=== PATIENT | male | born 1990 | race Native Hawaiian/Other Pacific Islander ===

== ENCOUNTER 2017-10-31 09:08 | Emergency (ER) | payer OTHER ==
[2017-10-31 09:24] VITALS: BP 147/100
--- NOTE | 2017-10-31 10:06 | Emergency Department Report ---
ED General Adult HPI - General Chief complaint: Dizziness Stated complaint: DIZZY/DEHYDRATION Time Seen by Provider: 10/31/17 09:32 Source: patient Mode of arrival: Ambulatory Limitations: No Limitations - History of Present Illness Initial comments: Mr. Arboleda is a healthy 26-year-old male presents with nausea vomiting for the past 4 days. He had a lot of alcohol to drink while he was in [place]. He returned on Friday. He was so ill that he was [place] at [place] in [place]. He also saw his PCP on yesterday. PCP gave him normal bill of health. However she wanted for him to be evaluated for liver disease. He has referral for outpatient evaluations today. He's had fever. Has a history of alcohol abuse. He has had 2 DUIs. He knows that he needs to stop drinking alcohol. "I know that I am tearing up my body." - Related Data Previous Rx's Medication Instructions Recorded Last Taken Type Ciprofloxacin HCl [Cipro] 500 mg PO BID 3 Days #6 tablet 10/31/17 Unknown Rx Famotidine 20 mg PO BID 30 Days #60 tablet 10/31/17 Unknown Rx Promethazine [Phenergan TAB] 25 mg PO Q6HR PRN #10 tab 10/31/17 Unknown Rx Allergies Allergy/AdvReac Type Severity Reaction Status Date / Time No Known Allergies Allergy Unverified 10/31/17 09:27 ED Review of Systems ROS: Stated complaint: DIZZY/DEHYDRATION Other details as noted in HPI Comment: All other systems reviewed and negative Constitutional: fever, malaise Respiratory: denies: cough Cardiovascular: denies: chest pain ED Past Medical Hx - Past Medical History Previous Medical History?: No Additional medical history: Alcohol abuse - Surgical History Past Surgical History?: Yes Additional Surgical History: rt arm surgery - Social History Smoking Status: Current Every Day Smoker Substance Use Type: Alcohol, Marijuana - Medications Home Medications: Home Medications Medication Instructions Recorded Confirmed Last Taken Type Ciprofloxacin HCl [Cipro] 500 mg PO BID 3 Days #6 tablet 10/31/17 Unknown Rx Famotidine 20 mg PO BID 30 Days #60 tablet 10/31/17 Unknown Rx Promethazine [Phenergan TAB] 25 mg PO Q6HR PRN #10 tab 10/31/17 Unknown Rx ED Physical Exam - General Limitations: No Limitations General appearance: alert, in no apparent distress - Head Head exam: Present: atraumatic, normocephalic - Eye Eye exam: Present: normal appearance - ENT ENT exam: Present: mucous membranes moist - Neck Neck exam: Present: normal inspection - Respiratory Respiratory exam: Present: normal lung sounds bilaterally. Absent: respiratory distress, wheezes, rales, rhonchi - Cardiovascular Cardiovascular Exam: Present: regular rate, normal rhythm, normal heart sounds. Absent: systolic murmur, diastolic murmur, rubs, gallop - GI/Abdominal GI/Abdominal exam: Present: soft, normal bowel sounds. Absent: distended, tenderness, guarding, rebound - Rectal Rectal exam: Present: deferred - Extremities Exam Extremities exam: Present: normal inspection - Back Exam Back exam: Present: normal inspection - Neurological Exam Neurological exam: Present: alert, oriented X3 - Psychiatric Psychiatric exam: Present: normal affect, normal mood - Skin Skin exam: Present: warm, dry, intact, normal color. Absent: rash ED Course Vital Signs 10/31/17 09:13 Temperature 98.0 F Pulse Rate 79 Respiratory 20 Rate Blood Pressure 147/100 O2 Sat by Pulse 99 Oximetry ED Medical Decision Making - Medical Decision Making Mr. Ellis presents with subjective fever and vomiting after binge drinking in [place] while on vacation. He understands that he will need to further abstain from alcohol. He is concerned about what the liver tests will reveal. I strongly encourage abstinence from alcohol. Will cover for possible food poisoning with ciprofloxacin. Also will provide famotidine prescription for possible alcoholic gastritis. Also provided prescription for promethazine. Critical care attestation.: If time is entered above; I have spent that time in minutes in the direct care of this critically ill patient, excluding procedure time. ED Disposition Clinical Impression: Food poisoning, Gastritis Disposition: DC-01 TO HOME OR SELFCARE Is pt being admited?: No Does the pt Need Aspirin: No Condition: Stable Instructions: At-Risk Alcohol Use (ED), Abuse of Alcohol (ED) Prescriptions: Ciprofloxacin HCl [Cipro] 500 mg PO BID 3 Days #6 tablet Famotidine 20 mg PO BID 30 Days #60 tablet Promethazine [Phenergan TAB] 25 mg PO Q6HR PRN #10 tab PRN Reason: Nausea Referrals: PRIMARY CARE,MD [Primary Care Provider] - 3-5 Days Forms: Work/School Release Form(ED) Time of Disposition: 10:08
== END 2017-10-31 10:39 | disposition home or self-care (01) ==
LOC: ED 09:08
DX: T62.8X1A Toxic effect of other specified noxious substances eaten as food, accidental (unintentional), initial encounter (principal); K29.60 Other gastritis without bleeding; F17.200 Nicotine dependence, unspecified, uncomplicated; F12.10 Cannabis abuse, uncomplicated; Y92.89 Other specified places as the place of occurrence of the external cause
CPT/HCPCS: 99281

== ENCOUNTER 2018-11-29 08:04 | Emergency (ER) | payer OTHER ==
[2018-11-29 08:13] VITALS: BP 138/84
--- NOTE | 2018-11-29 08:36 | Emergency Department Report ---
HPI - General Chief Complaint: Skin/Abscess/Foreign Body Time Seen by Provider: 11/29/18 08:21 - HPI HPI: 27-year-old male presents to the emergency department with what appears to be a small abscess just above his rectum that has been there for the past 2-3 days. Patient says that he had this one time in the past and it grew to be very large before "busting open" and after that he had extreme pain and was unable to sit down for a while. For this reason, he decided to come in sooner this time around. He otherwise denies any past medical history. He has not taken anything for her symptoms prior to arrival. ED Past Medical Hx - Past Medical History Previous Medical History?: Yes Additional medical history: Alcohol abuse - Surgical History Past Surgical History?: Yes Additional Surgical History: rt arm surgery - Social History Smoking Status: Current Some Day Smoker Substance Use Type: Marijuana - Medications Home Medications: Home Medications Medication Instructions Recorded Confirmed Last Taken Type Ciprofloxacin HCl [Cipro] 500 mg PO BID 3 Days #6 tablet 10/31/17 Unknown Rx Famotidine 20 mg PO BID 30 Days #60 tablet 10/31/17 Unknown Rx Promethazine [Phenergan] 25 mg PO Q6HR PRN #10 tab 10/31/17 Unknown Rx HYDROcodone/APAP 5-325 [[place] 1 each PO Q6HR PRN #6 tablet 11/29/18 Unknown Rx 5/325] Sulfamethoxazole/Trimethoprim 1 each PO BID #10 tablet 11/29/18 Unknown Rx [Bactrim DS TAB] ED Review of Systems ROS: Stated complaint: ANAL ABCESS Other details as noted in HPI Comment: All other systems reviewed and negative Constitutional: denies: chills, fever Gastrointestinal: denies: abdominal pain, constipation, melena Skin: lesions. denies: change in color Physical Exam - Physical Exam Vital Signs: Vital Signs 11/29/18 08:09 Temperature 98.7 F Pulse Rate 66 Respiratory 20 Rate Blood Pressure 138/84 O2 Sat by Pulse 98 Oximetry Physical Exam: GENERAL: The patient is well-developed well-nourished. HENT: Normocephalic. Atraumatic. Patient has moist mucous membranes. EYES: Extraocular motions are intact. Pupils equal reactive to light bilateral ly. NECK: Supple. Trachea is midline. CHEST/LUNGS: Clear to auscultation. There is no respiratory distress noted. HEART/CARDIOVASCULAR: Regular. There is no tachycardia. There is no murmur. ABDOMEN: There is no abdominal distention. SKIN: Skin is warm and dry. NEURO: The patient is awake, alert, and oriented. The patient is cooperative. The patient has normal speech. MUSCULOSKELETAL: There is no tenderness or deformity. There is no evidence of acute injury. RECTAL: There is a small pilonidal or buttock abscess that is about 2 inches above the rectum and is about 1 inch in its greatest diameter. It is fluctuant and painful. No surrounding redness. No bleeding or drainage. ED Course Vital Signs 11/29/18 08:09 Temperature 98.7 F Pulse Rate 66 Respiratory 20 Rate Blood Pressure 138/84 O2 Sat by Pulse 98 Oximetry - I & D Buttocks Type of Procedure: Simple Site: jyoti-rectal, 1 inch above the rectum Blade Size: 11 I & D Procedure: betadine prep, sterile drapes applied Progress: < 1 mL of purulent discharge expressed. no bleeding. ED Medical Decision Making - Medical Decision Making patient presents to the emergency department with what appears to be a small perirectal abscess just superior to the rectum. An incision and drainage was done that did express some purulent discharge. There was not enough space available for iodoform gauze packing. Due to its location Rectum, the patient will still be placed on some antibiotics. We discussed cleaning the area with soap and water, soaking in a bathtub or using warm compresses to try and express any further infection, and how to monitor for worsening infection. He will return to the emergency Department with any worsening of his symptoms or any acute distress. - Differential Diagnosis abscess, hemorrhoids, pilonidal cyst Critical Care Time: No Critical care attestation.: If time is entered above; I have spent that time in minutes in the direct care of this critically ill patient, excluding procedure time. ED Disposition Clinical Impression: Jyoti-rectal abscess Disposition: -01 TO HOME OR SELFCARE Is pt being admited?: No Condition: Stable Instructions: Abscess Incision and Drainage (ED), Abscess (ED) Additional Instructions: Please follow up with a primary care physician in the next few days. You should soak a few times in a warm bath, or use warm but not hot compresses, to the area to try and express any further infection. Take the antibiotics as prescribed. Return to the emergency department with any return of worsening of her symptoms, development of fever, inability to have a bowel movement, if any acute distress. You have been prescribed a medication that is sedating and therefore should not be taken prior to driving, working, and responsible for children and in no way should be mixed with alcohol of any quantity. Prescriptions: Sulfamethoxazole/Trimethoprim [Bactrim DS TAB] 1 each PO BID #10 tablet HYDROcodone/APAP 5-325 [[place] 5/325] 1 each PO Q6HR PRN #6 tablet PRN Reason: Pain Referrals: JUVENTINO GUAJARDO MD [Staff Physician] - 3-5 Days [facility] [Outside] - 3-5 Days Time of Disposition: 08:50
== END 2018-11-29 09:01 | disposition home or self-care (01) ==
LOC: ED 08:04
DX: K61.1 Rectal abscess (principal); F10.10 Alcohol abuse, uncomplicated; F17.200 Nicotine dependence, unspecified, uncomplicated; F12.90 Cannabis use, unspecified, uncomplicated; Z98.890 Other specified postprocedural states
CPT/HCPCS: 99282

== ENCOUNTER 2021-09-26 03:34 | Emergency (ER) | payer BC, OTHER ==
[2021-09-26 04:00] LABS: Basophils % (Auto) 0.5 % (0.0-1.8); Eosinophils # (Auto) 0.1 K/mm3 (0.0-0.4); Eosinophils % (Auto) 1.1 % (0.0-4.3); Hematocrit 46.2 % (35.5-45.6); Lymphocytes # (Auto) 2.8 K/mm3 (1.2-5.4); Lymphocytes % (Auto) 42.6 % (13.4-35.0); Mean Corpuscular HGB Conc 35 % (32-34); Mean Corpuscular Volume 86 fl (84-94); Monocytes # (Auto) 0.6 K/mm3 (0.0-0.8); Monocytes % (Auto) 9.1 % (0.0-7.3); Platelet Count 155 K/mm3 (140-440); Red Blood Count 5.35 M/mm3 (3.65-5.03); Red Cell Distribution Width 14.4 % (13.2-15.2)
--- NOTE | 2021-09-26 04:07 | Cat Scan Report ---
CT HEAD WITHOUT CONTRAST INDICATION / CLINICAL INFORMATION: CODE STROKE PROTOCOL!!! Stroke-Like symptoms. TECHNIQUE: All CT scans at this location are performed using CT dose reduction for ALARA by means of automated exposure control. COMPARISON: None available. FINDINGS: HEMORRHAGE: None. EXTRA-AXIAL SPACES: Normal in size and morphology for the patient's age. VENTRICULAR SYSTEM: Normal in size and morphology for the patient's age. CEREBRAL PARENCHYMA: No significant abnormality. No acute territorial infarct. MIDLINE SHIFT / HERNIATION: None. CEREBELLUM / BRAINSTEM: No significant abnormality. ORBITS: Normal as visualized SOFT TISSUES: No significant abnormality. SKULL: No significant abnormality. PARANASAL SINUSES / MASTOID AIR CELLS: Normal as visualized ADDITIONAL FINDINGS: None. IMPRESSION: 1. No acute intracranial abnormality. Signer Name: Jem Mccallum DO Signed: 09/26/2021 4:02 AM Workstation Name: [id number]
[2021-09-26 04:11] LABS: INR 0.89 (0.87-1.13)
[2021-09-26 04:12] LABS: Partial Thromboplastin Time 26.5 Sec. (24.2-36.6)
[2021-09-26 04:18] LABS: Alanine Aminotransferase 22 units/L (7-56); Albumin 4.4 g/dL (3.9-5); BUN/Creatinine Ratio 15; Blood Urea Nitrogen 17 mg/dL (9-20); Calcium 8.8 mg/dL (8.4-10.2); Hemolysis Index 6
--- NOTE | 2021-09-26 04:32 | Emergency Department Report ---
Blank Doc - Documentation Documentation: [facility] Consult Note # Demographics Consult Type: Acute Stroke Level 1 (0-4.5 hrs) Patient Location: Emergency Room First Name: Stas Last Name: Caleb Date of : 1990 Facility: [facility] Time of Initial Page ( Time): 09/26/2021, 03:39 Time of Return Call ( Time): 09/26/2021, 03:42 # HPI History: 30 yo man with history of anxiety presenting with left sided numbness that has been going on for several days. The patient notes similar event happened months ago and resolved spontaneously. # Scores Time of exam and NIHSS ( Time): 09/26/2021, 04:28 Level of Consciousness 1a: [0] = Alert; keenly responsive LOC Questions 1b: [0] = Answers both questions correctly LOC Commands 1c: [0] = Performs both tasks correctly Best Gaze 2: [0] = Normal Visual 3: [0] = No visual loss Facial Palsy 4: [0] = Normal symmetrical movements Motor Arm Left 5a: [0] = No drift Motor Arm Right 5b: [0] = No drift Motor Leg Left 6a: [0] = No drift Motor Leg Right 6b: [0] = No drift Limb Ataxia 7: [0] = Absent Sensory 8: [0] = Normal Best Language 9: [0] = No aphasia Dysarthria 10: [0] = Normal Extinction and Inattention 11: [0] = No abnormality NIHSS Total: 0 # Data Head CT: no bleed # Assessment Impression: left sided sensory changes, resolved. NIHSS 0 Do not suspect acute neurologic pathology # Plan Thrombolytic/Intervention: NOT IV Thrombolysis or IA Intervention candidate Thrombolytic Exclusion: > 4.5 hours Target Blood Pressure: SBP < 220 Labs: CBC comprehensive metabolic panel lipid panel troponin TSH urine drug screen ua Other: If patient has any neurological deterioration please call me back immediately I have discussed my recommendations with the referring provider Additional Recommendations: consider dc home can consider migraine cocktail. outpatient PCP follow up Disposition: observation # Logistics Telemedicine: Interactive 2 way audio and visual telecommunication technology was utilized during this visit
--- NOTE | 2021-09-26 05:15 | Emergency Department Report ---
ED Neuro Deficit HPI - General Chief Complaint: Neuro Symptoms/Deficit Stated Complaint: LT SIDE NUMBNESS Time Seen by Provider: 09/26/21 03:38 Source: patient Mode of arrival: Ambulatory Limitations: No Limitations - History of Present Illness Initial Comments: 30-year-old male who presents with palpitation and left-sided numbness that started after waking up about 1-1/2 to 2 hours this morning. All was normal when he went to bed at 12 midnight. Patient has a history of same symptoms about 7 months ago when he went to [place] with negative neuro work-up. Patient is supposed to be having echocardiogram of his heart today at [place]. Patient seem to be very anxious. Patient denies any chest pain or shortness of breath. No fever or chills noted. No other modifying or associated factors reported. - Related Data Home Medications: Previous Rx's Medication Instructions Recorded Last Taken Type Ciprofloxacin HCl [Cipro] 500 mg PO BID 3 Days #6 tablet 10/31/17 Unknown Rx Famotidine 20 mg PO BID 30 Days #60 tablet 10/31/17 Unknown Rx Promethazine [Phenergan] 25 mg PO Q6HR PRN #10 tab 10/31/17 Unknown Rx HYDROcodone/APAP 5-325 [[place] 1 each PO Q6HR PRN #6 tablet 11/29/18 Unknown Rx 5/325] Sulfamethoxazole/Trimethoprim 1 each PO BID #10 tablet 11/29/18 Unknown Rx [Bactrim DS TAB] Allergies/Adverse Reactions: Allergies Allergy/AdvReac Type Severity Reaction Status Date / Time Penicillins Allergy Rash Verified 09/26/21 04:15 ED Review of Systems ROS: Stated complaint: LT SIDE NUMBNESS Other details as noted in HPI Comment: All other systems reviewed and negative Neurological: numbness Psychiatric: anxiety ED Past Medical Hx - Past Medical History Previous Medical History?: No - Surgical History Past Surgical History?: Yes Additional Surgical History: right arm surgery - Social History Smoking Status: Never Smoker Substance Use Type: None - Medications Home Medications: Home Medications Medication Instructions Recorded Confirmed Last Taken Type Ciprofloxacin HCl [Cipro] 500 mg PO BID 3 Days #6 tablet 10/31/17 Unknown Rx Famotidine 20 mg PO BID 30 Days #60 tablet 10/31/17 Unknown Rx Promethazine [Phenergan] 25 mg PO Q6HR PRN #10 tab 10/31/17 Unknown Rx HYDROcodone/APAP 5-325 [[place] 1 each PO Q6HR PRN #6 tablet 11/29/18 Unknown Rx 5/325] Sulfamethoxazole/Trimethoprim 1 each PO BID #10 tablet 11/29/18 Unknown Rx [Bactrim DS TAB] ED Neuro Physical Exam - General Limitations: No Limitations General appearance: alert, in no apparent distress, anxious Suspected Stroke: No - Head Head exam: Present: normal inspection - Eye Eye exam: Present: normal appearance Pupils: Present: normal accommodation - ENT ENT exam: Present: normal exam, normal orophraynx, mucous membranes moist - Neck Neck exam: Present: normal inspection, full ROM. Absent: tenderness, meningismus - Respiratory Respiratory exam: Present: normal lung sounds bilaterally. Absent: respiratory distress, accessory muscle use - Cardiovascular Cardiovascular Exam: Present: normal rhythm, bradycardia, normal heart sounds - GI/Abdominal GI/Abdominal exam: Present: soft, normal bowel sounds. Absent: distended, tenderness - Extremities Exam Extremities exam: Present: normal inspection, full ROM, normal capillary refill. Absent: tenderness, pedal edema - Back Exam Back exam: Present: normal inspection, full ROM. Absent: tenderness, CVA tenderness (R), CVA tenderness (L) - Neurological Exam Neurological exam: Present: alert, oriented X3 - NIHSS 1a. Level of Consciousness: alert/keenly responsive 1b. LOC Questions: answers both correctly 1c. LOC Commands: performs tasks correctly 2. Best Gaze: normal 3. Visual: no visual loss 4. Facial Palsy: normal symmetrical movement 5b. Motor Arm Right: no drift 5a. Motor Arm Left: no drift 6a. Motor Leg Left: no drift 6b. Motor Leg Right: no drift 7. Limb Ataxia: absent 8. Sensory: normal 9. Best Language: no aphasia 10. Dysarthria: normal 11. Extinction/Inattention: no abnormality Total Score: 0 Stroke Severity: No Stroke Symptoms - Psychiatric Psychiatric exam: Present: normal affect, anxious - Skin Skin exam: Present: warm, normal color ED Course Vital Signs 09/26/21 09/26/21 09/26/21 04:00 04:16 04:30 Temperature 97.6 F Pulse Rate 62 59 L 61 Respiratory 14 16 18 Rate Blood Pressure 123/75 119/76 119/77 Blood Pressure 123/75 [Left] O2 Sat by Pulse 99 98 98 Oximetry 09/26/21 09/26/21 09/26/21 04:46 05:00 05:16 Temperature Pulse Rate 60 71 59 L Respiratory 12 16 14 Rate Blood Pressure 118/73 111/68 115/77 Blood Pressure [Left] O2 Sat by Pulse 98 99 98 Oximetry - Reevaluation(s) Reevaluation #1: 09/26/21 05:11 here with numbness with palpitation -- and noted with anxiety on examination-- pt have had same symptoms about 7 months ago at [place] with negative neuro workup-- NIH score of zero -- this is likely anxiety related than neuro-- Dr Aguilar neurology solution spec consulted who agreed and suggested ruling out cardiac or anxiety as he did not believe this to be neuro following his exam ination via telehealth. CT head noted to be negative for any acute intracranial abnormality-- will continue to monitor other workup labs -- Reevaluation #2: 09/26/21 06:08 CT head noted negative with cardiac workup -- pt reassured and encouraged to keep his appointment for Echocardiogram at 10 AM this morning. - Lab Data Result diagrams: 09/26/21 03:51 09/26/21 03:51 Lab Results 09/26/21 09/26/21 09/26/21 Range/Units 03:51 03:51 03:51 WBC 6.5 (4.5-11.0) K/mm3 RBC 5.35 H (3.65-5.03) M/mm3 Hgb 16.0 H (11.8-15.2) gm/dl Hct 46.2 H (35.5-45.6) % MCV 86 (84-94) fl MCH 30 (28-32) pg MCHC 35 H (32-34) % RDW 14.4 (13.2-15.2) % Plt Count 155 (140-440) K/mm3 Lymph % (Auto) 42.6 H (13.4-35.0) % Pope % (Auto) 9.1 H (0.0-7.3) % Eos % (Auto) 1.1 (0.0-4.3) % Baso % (Auto) 0.5 (0.0-1.8) % Lymph # (Auto) 2.8 (1.2-5.4) K/mm3 Pope # (Auto) 0.6 (0.0-0.8) K/mm3 Eos # (Auto) 0.1 (0.0-0.4) K/mm3 Baso # (Auto) 0.0 (0.0-0.1) K/mm3 Seg Neutrophils % 46.7 (40.0-70.0) % Seg Neutrophils # 3.0 (1.8-7.7) K/mm3 PT (12.2-14.9) Sec. INR (0.87-1.13) APTT (24.2-36.6) Sec. Sodium 135 L (137-145) mmol/L Potassium 3.5 L (3.6-5.0) mmol/L Chloride 98.9 (98-107) mmol/L Carbon Dioxide 26 (22-30) mmol/L Anion Gap 14 mmol/L BUN 17 (9-20) mg/dL Creatinine 1.1 (0.8-1.3) mg/dL Estimated GFR > 60 ml/min BUN/Creatinine Ratio 15 % Glucose 107 H (75-100) mg/dL Calcium 8.8 (8.4-10.2) mg/dL Total Bilirubin 0.40 (0.1-1.2) mg/dL AST 25 (5-40) units/L ALT 22 (7-56) units/L Alkaline Phosphatase 37 (35-129) units/L Troponin T < 0.010 (0.00-0.029) ng/mL NT-Pro-B Natriuret Pep 5.15 (0-450) pg/mL Total Protein 7.3 (6.3-8.2) g/dL Albumin 4.4 (3.9-5) g/dL Albumin/Globulin Ratio 1.5 % TSH 2.120 (0.270-4.200) mlU/mL Plasma/Serum Alcohol (0-0.07) % 09/26/21 09/26/21 Range/Units 03:51 03:51 WBC (4.5-11.0) K/mm3 RBC (3.65-5.03) M/mm3 Hgb (11.8-15.2) gm/dl Hct (35.5-45.6) % MCV (84-94) fl MCH (28-32) pg MCHC (32-34) % RDW (13.2-15.2) % Plt Count (140-440) K/mm3 Lymph % (Auto) (13.4-35.0) % Pope % (Auto) (0.0-7.3) % Eos % (Auto) (0.0-4.3) % Baso % (Auto) (0.0-1.8) % Lymph # (Auto) (1.2-5.4) K/mm3 Pope # (Auto) (0.0-0.8) K/mm3 Eos # (Auto) (0.0-0.4) K/mm3 Baso # (Auto) (0.0-0.1) K/mm3 Seg Neutrophils % (40.0-70.0) % Seg Neutrophils # (1.8-7.7) K/mm3 PT 13.0 (12.2-14.9) Sec. INR 0.89 (0.87-1.13) APTT 26.5 (24.2-36.6) Sec. Sodium (137-145) mmol/L Potassium (3.6-5.0) mmol/L Chloride (98-107) mmol/L Carbon Dioxide (22-30) mmol/L Anion Gap mmol/L BUN (9-20) mg/dL Creatinine (0.8-1.3) mg/dL Estimated GFR ml/min BUN/Creatinine Ratio % Glucose (75-100) mg/dL Calcium (8.4-10.2) mg/dL Total Bilirubin (0.1-1.2) mg/dL AST (5-40) units/L ALT (7-56) units/L Alkaline Phosphatase (35-129) units/L Troponin T (0.00-0.029) ng/mL NT-Pro-B Natriuret Pep (0-450) pg/mL Total Protein (6.3-8.2) g/dL Albumin (3.9-5) g/dL Albumin/Globulin Ratio % TSH (0.270-4.200) mlU/mL Plasma/Serum Alcohol < 0.01 (0-0.07) % - EKG Data -: EKG Interpreted by Ut EKG shows normal: sinus rhythm Rate: bradycardia Interpretation: no acute changes 09/26/21 05:18 Noted with sinus bradycardia at a rate of 59 bpm, with early repolarization no ST depression or elevation noted. Critical care attestation.: If time is entered above; I have spent that time in minutes in the direct care of this critically ill patient, excluding procedure time. ED Disposition Clinical Impression: Anxiety, Palpitations Disposition: HOME / SELF CARE / HOMELESS Is pt being admited?: No Does the pt Need Aspirin: No Condition: Stable Referrals: YNES TREADWELL MD [Referring] - 3-5 Days Time of Disposition: 06:10
[2021-09-26 06:25] VITALS: BP 110/65
== END 2021-09-26 06:20 | disposition home or self-care (01) ==
LOC: ED 03:34
DX: R00.2 Palpitations (principal); F41.9 Anxiety disorder, unspecified; Z98.890 Other specified postprocedural states; Z88.0 Allergy status to penicillin
CPT/HCPCS: 36415; 70450; 80053; 80320; 83880; 84443; 84484; 85025; 85610; 85730; 93005; 99284; G0480